=== PATIENT | female | born 1980 | race African-American/Black ===

== ENCOUNTER 2023-10-06 13:58 | Emergency (ER) | payer BC, MEDICAID, SELFPAY ==
--- NOTE | ~2023-10-06 | US_ITS ---
EXAMINATION: US OB <=14 wk fetus w TV DATE: 10/06/2023 17:09 INDICATION: Abdominal pain during early TECHNIQUE: Real-time pelvic ultrasound utilizing both a transvaginal and transabdominal probe was pe rformed. The interpreting radiologist was not present for the study. COMPARISON: None. FINDINGS: The uterus measures 14.1 x 6.4 x 11.4 cm. There is an intrauterine gestational sac. A yolk sac and f etal pole are identified. The crown rump length measures 2.1 cm, which correlates with an estimated g estational age of 8 weeks and 5 days. heart motion is identified measuring 175 beats per minute (bpm) by M-mode Doppler. The right ovary measures 4.7 x 2.6 x 2.8 cm. There is an internal 2.8 x 2.1 x 1.9 cm anechoic likely corpus luteum cyst in the right ovary. The left ovary measures 2.2 x 1.4 x 2.7 cm. There is a minimal amount of free fluid along the right ovary. IMPRESSION: 1. Single living fetus with heart rate of 175 bpm. 2. Gestational age by ultrasound of 8 weeks 5 day(s) +/- 4 day(s) with ultrasound estimated date of delivery (KENDRA) of 05/13/2024. Reviewed, dictated and finalized at location B. IMPRESSION: 1. Single living fetus with heart rate of 175 bpm. 2. Gestational age by ultrasound of 8 weeks 5 day(s) +/- 4 day(s) with ultraso und estimated date of delivery (KENDRA) of 05/13/2024.
[2023-10-06 14:23] VITALS: BP 117/65; PULSE 73; RESP 16; TEMP 36.4; O2SAT 100
[2023-10-06 14:59] VITALS: BP 127/80; PULSE 79; RESP 17; O2SAT 95
--- NOTE | 2023-10-06 15:26 | ED.GENADULT ---
HPI - General Adult General Chief complaint: Nausea/Vomiting/Diarrhea Stated complaint: 8 weeks , nausea Time Seen by Provider: 10/06/23 15:00 History of Present Illness HPI narrative: Patient 43-year-old female who presents emergency department chief complaint of nausea vomiting. Patient reports that she has had hyperemesis before with previous pregnancies and reports that she recently found out she was patient is dizzy and OB on Monday at [facility] and reports that she has been taking likely just as she had issues with no response to Reglan and is allergic to Zofran the patient reports that today she was driving her vehicle became nauseated and started getting kind of shaking during the episode. The patient reports that she has abdominal cramping and has also had some constipation recently Related Data Allergies Allergy/AdvReac Type Severity Reaction Status Date / Time ondansetron Allergy Hives Verified 10/06/23 14:58 Review of Systems Review of Systems: A 10 system review of systems was completed on the patient and is negative except for what is stated in the HPI. Nursing and ancillary documentation was reviewed. Exam Narrative: GENERAL: Well-appearing, well-nourished, and in no acute distress. HEAD: Normocephalic, atraumatic. EYES: PERRLA and EOMI. ENT: Nares clear, no rhinorrhea or epistaxis. Mucous membranes moist. NECK: Supple. CHEST: Clear to auscultation. No respiratory distress. HEART: Regular rate and rhythm. No murmur heard. Normal peripheral pulses. ABDOMEN: Soft, mild tenderness to palpation, nondistended, normal active bowel sounds. EXTREMITIES: Normal range of motion. No edema. SKIN: Warm, dry, no rash. NEURO: No focal deficits. Alert and oriented x3. PSYCH: Normal mood and affect. Course Vital Signs Vital signs: Vital Signs Temperature 36.4 C 10/06/23 14:23 Pulse Rate 73 10/06/23 14:23 Respiratory Rate 16 10/06/23 14:23 Blood Pressure 117/65 10/06/23 14:23 Pulse Oximetry 100 10/06/23 14:23 Temperature 36.4 C 10/06/23 14:23 Pulse Rate 83 10/06/23 15:57 Respiratory Rate 16 10/06/23 15:57 Blood Pressure 138/82 10/06/23 15:57 Pulse Oximetry 100 10/06/23 15:57 Medical Decision Making MDM Narrative Medical decision making narrative: Differential diagnosis includes hyperemesis gravidarum, dehydration, gastroenteritis Laboratory studies showed a trace ketones in the urine HCG was 138,750 CMP was within normal limits potassium was 3.4 magnesium was 1.8 The patient underwent ultrasound that showed 1. Single living fetus with heart rate of 175 bpm. 2. Gestational age by ultrasound of 8 weeks 5 day(s) +/- 4 day(s) with ultrasound estimated date of delivery ([facility]DR[facility]) of 05/13/2024. Vital Signs Vital Signs: Vital Signs Temperature 36.4 C 10/06/23 14:23 Pulse Rate 73 10/06/23 14:23 Respiratory Rate 16 10/06/23 14:23 Blood Pressure 117/65 10/06/23 14:23 Pulse Oximetry 100 10/06/23 14:23 Temperature 36.4 C 10/06/23 14:23 Pulse Rate 83 10/06/23 15:57 Respiratory Rate 16 10/06/23 15:57 Blood Pressure 138/82 10/06/23 15:57 Pulse Oximetry 100 10/06/23 15:57 Lab Data 10/06/23 15:57 10/06/23 15:57 Labs: Lab Results 10/06/23 10/06/23 Range/Units 15:57 16:25 WBC 6.0 (4.5-10.0) K/mm3 RBC 4.89 (4.2-5.4) M/mm3 Hgb 12.5 (12.0-15.0) g/dL Hct 38.8 (37.0-47.0) % MCV 79.3 L (80-100) fl MCH 25.6 L (26-34) pg MCHC 32.2 (32-36) g/dl RDW 15.9 H (11.5-14.5) % Plt Count 239 (150-375) k/mm3 MPV 9.2 (7.4-10.4) fl Immature Gran % (Auto) 0.3 (0-0.5) % Neut % (Auto) 59.7 (45.5-73.1) % Lymph % (Auto) 28.0 (18.3-44.2) % Guthrie % (Auto) 9.5 H (2.6-8.5) % Eos % (Auto) 2.2 (0-4.4) % Baso % (Auto) 0.3 (0.2-1.2) % Lymph # (Auto) 1.68 (0.9-3.2) K/mm3 Guthrie # (Auto) 0.6 (0.1-0.6) K/mm3 Eos # (Auto) 0.1
[2023-10-06] MEDS: SODIUM CHLORIDE 0.9% IV 1,000 ML 999 ML IV CONT (15:48)
[2023-10-06] MEDS: METOCLOPRAMIDE HCL INJ 10 MG/2 ML VIAL IV PUSH (15:48)
[2023-10-06 15:57] VITALS: BP 138/82; PULSE 83; RESP 16; O2SAT 100
[2023-10-06 16:02] LABS: Basophils Percent Auto 0.3 % (0.2-1.2); Eosinophils Absolute Auto 0.1 K/mm3 (0-0.3); Eosinophils Percent Auto 2.2 % (0-4.4); Hematocrit 38.8 % (37.0-47.0); Hemoglobin 12.5 g/dL (12.0-15.0); Immature Granulocyte Absolute 0.02 K/mm3 (0.00-0.031); Immature Granulocyte Percent A 0.3 % (0-0.5); Lymphocytes Absolute Auto 1.68 K/mm3 (0.9-3.2); Mean Corpuscular HGB Conc 32.2 g/dl (32-36); Mean Corpuscular Hemoglobin 25.6 pg (26-34); Mean Corpuscular Volume 79.3 fl (80-100); Mean Platelet Volume 9.2 fl (7.4-10.4); Monocytes Absolute Auto 0.6 K/mm3 (0.1-0.6); Monocytes Percent Auto 9.5 % (2.6-8.5); Neutrophils Absolute Auto 3.6 K/mm3 (1.3-6.7); Neutrophils Percent Auto 59.7 % (45.5-73.1); Platelet Count Result 239 k/mm3 (150-375); Red Blood Count 4.89 M/mm3 (4.2-5.4); Red Cell Distribution Width 15.9 % (11.5-14.5)
[2023-10-06 16:12] LABS: Alanine Aminotransferase 21 U/L (6-35); Albumin Level 4.7 g/dL (3.5-5.1); Alkaline Phosphatase 66 U/L (38-126); Anion Gap 9 mmol/L (4-12); Aspartate Amino Transferase 25 U/L (14-36); Bilirubin,Total 0.5 mg/dL (0.2-1.3); Blood Urea Nitrogen 9 mg/dL (7-17); Calcium 9.9 mg/dL (8.4-10.2); Carbon Dioxide 20 mmol/L (22-30); Chloride 107 mmol/L (98-107); Estimated CRCL calculation 134 ml/min; Estimated Glomerular Filt Rate > 60; Glucose 80 mg/dL (65-110); Magnesium 1.8 mg/dL (1.6-2.3); Potassium 3.4 mmol/L (3.4-5.0); Sodium 136 mmol/L (137-145)
[2023-10-06 16:36] LABS: Appearance Urine Clear (Clear); Bacteria Urine None Seen /hpf; Bilirubin Urine Negative (Negative); Blood Urine Negative (Negative); Color Urine Yellow (Yellow); Glucose Urine UA Negative (Negative); Ketones Urine Trace mg/dL (Negative); Leukocyte Esterase Ur Trace LEU/UL (Negative); Nitrate Urine Negative (Negative); Non Pathogenic Casts 0-2; Protein Urine Negative (Negative); RBC Urine 0-2 /hpf (0-2); Specific Grav Ur 1.011 (1.001-1.035); Squamous Epithelial Cell Urine Occasional /hpf (Few); Urobilinogen Urine 0.2 mg/dL (<2.0); WBC Urine 0-5 /hpf (0-3)
[2023-10-06 16:39] LABS: Add Urine Microscopic? YES
== END 2023-10-06 18:00 | disposition home or self-care (01) ==
PROVIDERS: Emergency Provider Emergency Medicine
DX: O21.9 Vomiting of pregnancy, unspecified (principal); Z3A.08 8 weeks gestation of pregnancy
CPT/HCPCS: 36415; 76801; 76817; 80053; 81001; 83735; 84702; 85025; 96361; 96374; 99284; J2765; J7030